=== PATIENT | male | born 1995 | race Caucasian/White ===

== ENCOUNTER 2017-07-18 13:19 | Emergency (ER) | payer SELFPAY ==
[2017-07-18] MEDS ORDERED: Tetan/Diph/Pertus SYR(Tdap)* 0.5 ML SYR(BOOSTRIX) use SYR IM ONE (14:21)
[2017-07-18] MEDS ORDERED: Lidocaine 2% 10 ML* VIAL INJ ONE (14:21)
--- NOTE | 2017-07-18 14:24 | UC ---
Laceration HPI - HPI Summary HPI Summary: PT WAS TRYING TO PRY OPEN A STRONG FOB WITH A POCKET KNIFE WHEN HE CUT IS LEFT THUMB. OCCURED AROUND 11AM TODAY. NO FB SENSATION OR LIMITED ROM. TETANUS STATUS IS NOT KNOWN. DENIES ANY OTHER INJURY - History Of Current Complaint Chief Complaint: UCLaceration Stated Complaint: LACERATION LEFT THUMB Time Seen by Provider: 07/18/17 14:16 Hx Obtained From: Patient Onset/Duration: Sudden Onset Severity: Mild - Allergies/Home Medications Allergies/Adverse Reactions: Allergies Allergy/AdvReac Type Severity Reaction Status Date / Time No Known Allergies Allergy Verified 07/18/17 14:15 Home Medications: Home Medications NK [No Home Medications Reported] 07/18/17 [History Confirmed 07/18/17] PMH/Surg Hx/FS Hx/Imm Hx Previously Healthy: Yes - Surgical History Surgical History: None - Family History Known Family History: Positive: None - Social History Occupation: Employed Full-time Alcohol Use: Occasionally - Immunization History Hx Tetanus, Diphtheria Vaccination: No Review of Systems Constitutional: Negative Skin: Negative Eyes: Negative ENT: Negative Respiratory: Negative Cardiovascular: Negative Gastrointestinal: Negative Genitourinary: Negative Motor: Negative Neurovascular: Negative Musculoskeletal: Negative Neurological: Negative Psychological: Negative Is Patient Immunocompromised?: No All Other Systems Reviewed And Are Negative: Yes Physical Exam Triage Information Reviewed: Yes Appearance: Well-Appearing Vital Signs Reviewed: Yes Eye Exam: Normal ENT: Positive: Normal ENT inspection Neck: Positive: Supple Respiratory: Positive: Lungs clear, Normal breath sounds Cardiovascular: Positive: RRR, No Murmur Abdomen Description: Positive: Nontender, No Organomegaly, Soft Bowel Sounds: Positive: Present Musculoskeletal: Positive: Strength Intact - L THUMB, ROM Intact - L THUMB Neurological: Positive: Alert Psychological: Positive: Age Appropriate Behavior Skin Exam: Normal Skin: Positive: Other - 2CM LACERATION DORSAL LEFT THUMB OVER IP JOINT. NO ACTIVE BLEEDING. S/V/M INTACT. M INTACT WITH AND WITHOUT RESISTANCE. AT TIME OF PROCEDURE, NOP FB' TENDON OR LIGAMENT INJURY. Laceration Repair - Laceration Repair 1 Description: Linear Laceration Size After Repair: Length (cm) - 2 Contamination/FB Removal: none Modified For Repair: No Type Injection: Local Anesthesia Used: 1.0% Lido - 1ml Irrigation With Pressure Irrigation Device: Yes Closure Material: Sutures - 5-0 nylon Closure Method: Single Layer Suture Of: Skin Suture Type: Nylon, Other - 2 simple and 1 horizontal mattres Laceration Course/Dx - Course/Dx Course Of Treatment: BACITRACIN AND DRESSING APPLIED. TOLERATED WELL WITH FULL V /M INTACT - Differential Dx - Laceration/Wound Provider Diagnoses: 2CM LACERATIONLEFT THUMB Discharge - Discharge Plan Condition: Stable Disposition: HOME Patient Education Materials: Care For Your Stitches (ED) Referrals: No Primary Care Phys,NOPCP [Primary Care Provider] - Additional Instructions: RETURN HERE IN 10 DAYS FOR SUTURE REMOVAL. HAVE A WOUND CHECK IMMEDIATELY FOR ANY CONCERNS.
[2017-07-18] MEDS ORDERED: Lidocaine 2% PF * 5 ML VIAL ONE (14:26)
== END 2017-07-18 15:05 | disposition home or self-care (01) ==
LOC: UCCORT 13:19
DX: S61.012A Laceration without foreign body of left thumb without damage to nail, initial encounter (principal); W26.0XXA Contact with knife, initial encounter; Y93.89 Activity, other specified; Y92.9 Unspecified place or not applicable
CPT/HCPCS: 12001; 90471; 90715; 99201; G0463

== ENCOUNTER 2017-07-28 09:39 | Emergency (ER) | payer OTHER ==
[2017-07-28 10:07] VITALS: BP 134/82
--- NOTE | 2017-07-28 10:17 | UC ---
HPI Wound/Suture Re-check - HPI Summary HPI Summary: here for suture removal left thumb healing well, no redness, no swelling, no pain , no discharge - History Of Current Complaint Chief Complaint: UCSkin Stated Complaint: SUTURE REMOVAL Time Seen by Provider: 07/28/17 10:06 Hx Obtained From: Patient Onset/Duration: Gradual Onset, Lasting Days - 10, Still Present Severity: Mild Pain Intensity: 0 Procedure Type: suture removal Surgery Date: 07/18/17 Hands: 1 - laceration , 3 sutures intact - Allergies/Home Medications Allergies/Adverse Reactions: Allergies Allergy/AdvReac Type Severity Reaction Status Date / Time No Known Allergies Allergy Verified 07/28/17 10:05 PMH/Surg Hx/FS Hx/Imm Hx Previously Healthy: Yes - Surgical History Surgical History: None - Family History Known Family History: Positive: None Negative: Diabetes - Social History Alcohol Use: Occasionally Substance Use Type: None Smoking Status (MU): Current Every Day Smoker Type: Cigarettes Amount Used/How Often: 1 PPD Household Exposure Type: Cigarettes - Immunization History Most Recent Tetanus Shot: 07/18/17 Hx Tetanus, Diphtheria Vaccination: No Review of Systems Constitutional: Negative Eyes: Negative ENT: Negative Respiratory: Negative Cardiovascular: Negative Is Patient Immunocompromised?: No All Other Systems Reviewed And Are Negative: Yes Physical Exam Triage Information Reviewed: Yes Appearance: Well-Appearing, No Pain Distress, Well-Nourished Vital Signs: Initial Vital Signs Temp 98.1 F 07/28/17 10:00 Pulse 64 07/28/17 10:00 Resp 16 07/28/17 10:00 BP 134/82 07/28/17 10:00 Pulse Ox 100 07/28/17 10:00 Vital Signs Reviewed: Yes Eye Exam: Normal Eyes: Positive: Conjunctiva Clear ENT: Positive: Normal ENT inspection, Hearing grossly normal, Pharynx normal Neck: Positive: Supple, Nontender, No Lymphadenopathy Respiratory: Positive: Chest non-tender, Lungs clear, Normal breath sounds Cardiovascular: Positive: RRR, No Murmur, Pulses Normal Skin: Positive: Other - laceration left thumb , healing well , no erythema, no swelling, no discharge, + 3 sutres intact , was removed Course/Dx - Differential Dx - Laceration/Wound Provider Diagnoses: suture removal. laceration left thumb Discharge - Sign-Out/Discharge Documenting (check all that apply): Discharge - Discharge Plan Condition: Stable Disposition: HOME Patient Education Materials: Stitches Removal (ED) Referrals: No Primary Care Phys,NOPCP [Primary Care Provider] - If Needed - Billing Disposition and Condition Condition: STABLE Disposition: HOME
== END 2017-07-28 10:17 | disposition home or self-care (01) ==
LOC: UCCORT 09:39
DX: S61.012D Laceration without foreign body of left thumb without damage to nail, subsequent encounter (principal); X58.XXXD Exposure to other specified factors, subsequent encounter